=== PATIENT | male | born 1980 | race Hispanic/Latino ===

== ENCOUNTER 2022-05-20 13:55 | Emergency (ER) | payer OTHER ==
[~2022-05-20] VITALS: Ht 177.8 cm; Wt 81.6 kg
[2022-05-20 14:02] VITALS: BP 143/94
[2022-05-20] MEDS: TETANUS/DIPHTHERIA TOXOID [ADULT] 0.5 ML VIAL IM ONE (15:35)
[2022-05-20] MEDS: ACETAMINOPHEN 325 MG TAB PO STA (15:48)
[2022-05-20] MEDS ORDERED: CEPH500B PO (16:11)
== END 2022-05-20 16:34 | disposition home or self-care (01) ==
LOC: EDH 13:55
DX: S00.83XA Contusion of other part of head, initial encounter (principal); X58.XXXA Exposure to other specified factors, initial encounter; Y93.89 Activity, other specified; Y92.89 Other specified places as the place of occurrence of the external cause; Y99.8 Other external cause status
CPT/HCPCS: 70486; 90471; 90714